=== PATIENT | male | born 1950 | race Caucasian/White ===

== ENCOUNTER 2020-03-17 13:22 | Emergency (ER) | payer MEDICARE, BC ==
[~2020-03-17] VITALS: Ht 182.9 cm; Wt 126.6 kg
[~2020-03-17 13:22] MED LIST: ASPI-12 PO; CELE-193 PO; GABA-338 PO; MULT-1085 PO; OMEG-166 PO; RESV250C2 PO; VITA-1 PO
[2020-03-17] MEDS ORDERED: normal saline 1000ML IV soln IVB ONE (14:05)
[2020-03-17 14:50] LABS: BASOPHILS % (AUTO) 0.5 % (0-1); EOSINOPHILS # (AUTO) 0.2 X10'3 (0-0.9); EOSINOPHILS % (AUTO) 3.3 % (0-6); HEMATOCRIT 43.8 % (42.0-52.0); HEMOGLOBIN 14.8 g/dl (14.0-17.9); LYMPHOCYTES # (AUTO) 1.5 X10'3 (1.1-4.8); LYMPHOCYTES % (AUTO) 23.7 % (21-51); MEAN CORPUSCULAR HEMOGLOBIN 32.9 PG (27.0-31.0); MEAN CORPUSCULAR HGB CONC 33.9 g/dL (33.0-36.5); MEAN CORPUSCULAR VOLUME 97.2 FL (78-98); MEAN PLATELET VOLUME 7.7 FL (7.4-10.4); MONOCYTES # (AUTO) 0.6 X10'3 (0-0.9); MONOCYTES % (AUTO) 10.3 % (2-12); NEUTROPHILS # (AUTO) 3.8 X10'3 (1.8-7.7); NEUTROPHILS % (AUTO) 62.2 % (42-75); PLATELET COUNT 211 X10'3 (140-440); RED BLOOD COUNT 4.51 X10'6 (4.70-6.10); RED CELL DISTRIBUTION WIDTH 13.6 % (11.5-14.5); WHITE BLOOD COUNT 6.2 X10'3 (4.5-11.0)
[2020-03-17 14:59] LABS: ALANINE AMINOTRANSFERASE 36 U/L (12-78); ALBUMIN 3.6 G/DL (3.4-5.0); ALBUMIN/GLOBULIN RATIO 1.1 (1.1-1.5); ALKALINE PHOSPHATASE 66 IU/L (46-116); ANION GAP 9 (8-16); ASPARTATE AMINO TRANSFERASE 27 U/L (10-37); BILIRUBIN,TOTAL 0.8 MG/DL (0.1-1.0); BLOOD UREA NITROGEN 33 MG/DL (7-18); BUN/CREATININE RATIO 20.2 (5.4-32.0); CALCIUM 8.6 MG/DL (8.5-10.1); CHLORIDE 109 MMOL/L (99-107); CREATININE 1.63 MG/DL (0.60-1.10); GLUCOSE 146 MG/DL (70-104); POTASSIUM 4.9 MMOL/L (3.5-5.1); SODIUM 141 MMOL/L (135-145); TOTAL CARBON DIOXIDE 23.3 MMOL/L (24-32); TOTAL PROTEIN 6.9 G/DL (6.4-8.2); eGFR 42 ML/MIN
[2020-03-17 15:51] VITALS: BP 96/52
== END 2020-03-17 15:57 | disposition home or self-care (01) ==
LOC: ER 13:22
DX: H53.8 Other visual disturbances (principal); R42 Dizziness and giddiness; Z95.0 Presence of cardiac pacemaker; Z98.890 Other specified postprocedural states; Z79.82 Long term (current) use of aspirin; Z79.899 Other long term (current) drug therapy
CPT/HCPCS: 36415; 80053; 84484; 85025; 93005; 96360; 99284; J7030

== ENCOUNTER 2020-09-03 13:21 | Emergency (ER) | payer MEDICARE, BC ==
[~2020-09-03] VITALS: Ht 182.9 cm; Wt 127.0 kg
[2020-09-03 13:44] VITALS: BP 101/65
[2020-09-03 14:25] LABS: BASOPHILS % (AUTO) 0.5 % (0-1); EOSINOPHILS # (AUTO) 0.2 X10'3 (0-0.9); EOSINOPHILS % (AUTO) 2.3 % (0-6); HEMATOCRIT 40.1 % (42.0-52.0); HEMOGLOBIN 13.5 g/dl (14.0-17.9); LYMPHOCYTES # (AUTO) 1.4 X10'3 (1.1-4.8); LYMPHOCYTES % (AUTO) 17.5 % (21-51); MEAN CORPUSCULAR HEMOGLOBIN 32.4 PG (27.0-31.0); MEAN CORPUSCULAR HGB CONC 33.6 g/dL (33.0-36.5); MEAN CORPUSCULAR VOLUME 96.6 FL (78-98); MEAN PLATELET VOLUME 7.2 FL (7.4-10.4); MONOCYTES # (AUTO) 0.8 X10'3 (0-0.9); MONOCYTES % (AUTO) 10.5 % (2-12); NEUTROPHILS # (AUTO) 5.4 X10'3 (1.8-7.7); NEUTROPHILS % (AUTO) 69.2 % (42-75); PLATELET COUNT 229 X10'3 (140-440); RED BLOOD COUNT 4.15 X10'6 (4.70-6.10); RED CELL DISTRIBUTION WIDTH 13.8 % (11.5-14.5); WHITE BLOOD COUNT 7.8 X10'3 (4.5-11.0)
[2020-09-03 14:39] LABS: PARTIAL THROMBOPLASTIN TIME 30 SECONDS (22-32)
[2020-09-03 14:44] LABS: ALANINE AMINOTRANSFERASE 28 U/L (12-78); ALBUMIN 3.6 G/DL (3.4-5.0); ALBUMIN/GLOBULIN RATIO 1.1 (1.1-1.5); ALKALINE PHOSPHATASE 73 IU/L (46-116); ANION GAP 9 (8-16); ASPARTATE AMINO TRANSFERASE 22 U/L (10-37); BILIRUBIN,TOTAL 0.8 MG/DL (0.1-1.0); BLOOD UREA NITROGEN 52 MG/DL (7-18); BUN/CREATININE RATIO 30.4 (5.4-32.0); CALCIUM 8.6 MG/DL (8.5-10.1); CHLORIDE 104 MMOL/L (99-107); CREATININE 1.71 MG/DL (0.60-1.10); GLUCOSE 105 MG/DL (70-104); POTASSIUM 5.1 MMOL/L (3.5-5.1); SODIUM 137 MMOL/L (135-145); TOTAL CARBON DIOXIDE 24.4 MMOL/L (24-32); TOTAL PROTEIN 6.9 G/DL (6.4-8.2); eGFR 40 ML/MIN
[2020-09-03] MEDS ORDERED: ONDA4TAB6 PO (17:34)
[2020-09-03] MEDS ORDERED: LIDO28CR2 TOP (17:34)
[2020-09-03] MEDS ORDERED: HYDR-3965 PO (17:34)
[2020-09-03] MEDS ORDERED: ondansetron/PF 4mg/2ml inj IV ONE (17:40)
[2020-09-03] MEDS ORDERED: HYDROcodone/acetaminophen 5mg/325mg tablet PO ONE (17:40)
[2020-09-03] MEDS ORDERED: ondansetron 4mg rapidly disintigrating tab PO ONE (17:45)
== END 2020-09-03 17:52 | disposition home or self-care (01) ==
LOC: ER 13:21
DX: K62.89 Other specified diseases of anus and rectum (principal); K64.4 Residual hemorrhoidal skin tags; Z98.890 Other specified postprocedural states; Z95.0 Presence of cardiac pacemaker; Z79.82 Long term (current) use of aspirin; Z79.899 Other long term (current) drug therapy
CPT/HCPCS: 36415; 80053; 85025; 85610; 85730; 99283

== ENCOUNTER 2020-09-19 08:17 | Emergency (ER) | payer MEDICARE, BC ==
[~2020-09-19] VITALS: Ht 182.9 cm; Wt 126.0 kg
[~2020-09-19 08:17] MED LIST changes: +LIDO28CR2 TOP; +ONDA4TAB6 PO
[2020-09-19 08:33] VITALS: BP 150/78
[2020-09-19] MEDS ORDERED: LIDO28CR2 TOP (11:13)
[2020-09-19] MEDS ORDERED: NITR30OI6 PR (11:16)
[2020-09-19] MEDS ORDERED: HYDR-3965 PO (11:30)
== END 2020-09-19 11:38 | disposition home or self-care (01) ==
LOC: ER 08:17
DX: K60.2 Anal fissure, unspecified (principal); Z98.890 Other specified postprocedural states; Z95.0 Presence of cardiac pacemaker; Z79.82 Long term (current) use of aspirin; Z79.899 Other long term (current) drug therapy
CPT/HCPCS: 99283

== ENCOUNTER 2020-11-05 19:55 | Emergency (ER) | payer MEDICARE, BC ==
[~2020-11-05] VITALS: Ht 182.9 cm; Wt 125.0 kg
[~2020-11-05 19:55] MED LIST changes: +NITR30OI6 PR
--- NOTE | 2020-11-05 21:12 | NUR ---
PACEMKER INTERROGATOR AT BEDSIDE.
[2020-11-05 21:41] LABS: BASOPHILS % (AUTO) 0.6 % (0-1); EOSINOPHILS # (AUTO) 0.2 X10'3 (0-0.9); EOSINOPHILS % (AUTO) 2.4 % (0-6); HEMATOCRIT 41.2 % (42.0-52.0); LYMPHOCYTES # (AUTO) 1.2 X10'3 (1.1-4.8); LYMPHOCYTES % (AUTO) 14.2 % (21-51); MEAN CORPUSCULAR HEMOGLOBIN 32.6 PG (27.0-31.0); MEAN CORPUSCULAR HGB CONC 33.9 g/dL (33.0-36.5); MEAN CORPUSCULAR VOLUME 96.3 FL (78-98); MEAN PLATELET VOLUME 7.2 FL (7.4-10.4); MONOCYTES # (AUTO) 0.7 X10'3 (0-0.9); MONOCYTES % (AUTO) 8.7 % (2-12); NEUTROPHILS # (AUTO) 6.2 X10'3 (1.8-7.7); NEUTROPHILS % (AUTO) 74.1 % (42-75); PLATELET COUNT 244 X10'3 (140-440); RED BLOOD COUNT 4.28 X10'6 (4.70-6.10); RED CELL DISTRIBUTION WIDTH 14.3 % (11.5-14.5); WHITE BLOOD COUNT 8.4 X10'3 (4.5-11.0)
[2020-11-05 21:56] LABS: ALANINE AMINOTRANSFERASE 24 U/L (12-78); ALBUMIN 3.2 G/DL (3.4-5.0); ALBUMIN/GLOBULIN RATIO 0.8 (1.1-1.5); ALKALINE PHOSPHATASE 68 IU/L (46-116); ANION GAP 7 (8-16); ASPARTATE AMINO TRANSFERASE 15 U/L (10-37); BILIRUBIN,TOTAL 0.4 MG/DL (0.1-1.0); BLOOD UREA NITROGEN 30 MG/DL (7-18); BUN/CREATININE RATIO 22.1 (5.4-32.0); CALCIUM 8.6 MG/DL (8.5-10.1); CHLORIDE 110 MMOL/L (99-107); CREATININE 1.36 MG/DL (0.60-1.10); GLUCOSE 126 MG/DL (70-104); POTASSIUM 4.3 MMOL/L (3.5-5.1); SODIUM 144 MMOL/L (135-145); TOTAL CARBON DIOXIDE 26.8 MMOL/L (24-32); eGFR 52 ML/MIN
[2020-11-05 22:04] LABS: MAGNESIUM 2.5 MG/DL (1.5-2.4)
[2020-11-05] MEDS ORDERED: normal saline 1000ML IV soln IVB ONE (22:05)
[2020-11-05] MEDS ORDERED: amiodarone 50MG/ML inj IV ONE (22:25)
[2020-11-05] MEDS ORDERED: AMIO200T61 PO (22:29)
[2020-11-05] MEDS ORDERED: amiodarone 150mg/dext, iso-os 100 ML IV ONE (22:30)
[2020-11-05 23:30] VITALS: BP 102/69
== END 2020-11-05 23:32 | disposition home or self-care (01) ==
LOC: ER 19:56
DX: T82.897A Other specified complication of cardiac prosthetic devices, implants and grafts, initial encounter (principal); E86.0 Dehydration; Z95.0 Presence of cardiac pacemaker; Z98.890 Other specified postprocedural states; Z79.82 Long term (current) use of aspirin; Z79.899 Other long term (current) drug therapy
CPT/HCPCS: 36415; 71045; 80053; 83735; 83880; 84484; 85025; 93005; 96365; 99285; J7030

== ENCOUNTER 2021-02-20 15:15 | Inpatient (IN) | payer MEDICARE, BC ==
[~2021-02-20] VITALS: Ht 365.8 cm; Wt 123.1 kg
[~2021-02-20 15:15] MED LIST changes: +LIDOcaine 2% 10ml vial ONE; +amiodarone 50MG/ML inj IV ONE; +etomidate 2mg/ml inj. ONE
[2021-02-20] MEDS ORDERED: SACU1TAB4 PO (15:29)
[2021-02-20] MEDS ORDERED: CARV6.253 PO (15:29)
[2021-02-20] MEDS ORDERED: APIX5TAB3 PO (15:29)
[2021-02-20] MEDS ORDERED: GABA600T13 PO (15:29)
[2021-02-20] MEDS ORDERED: DAPA10TA PO (15:29)
[2021-02-20] MEDS ORDERED: SOTA80TA73 PO (15:29)
[2021-02-20] MEDS ORDERED: SPIR25TA5 PO (15:29)
[2021-02-20] MEDS ORDERED: MULT-1085 PO (15:37)
[2021-02-20 15:39] LABS: BASOPHILS % (AUTO) 0.6 % (0-1); EOSINOPHILS # (AUTO) 0.2 X10'3 (0-0.9); HEMATOCRIT 47.5 % (42.0-52.0); HEMOGLOBIN 15.9 g/dl (14.0-17.9); LYMPHOCYTES # (AUTO) 1.3 X10'3 (1.1-4.8); MEAN CORPUSCULAR HEMOGLOBIN 32.1 PG (27.0-31.0); MEAN CORPUSCULAR HGB CONC 33.5 g/dL (33.0-36.5); MEAN CORPUSCULAR VOLUME 95.7 FL (78-98); MEAN PLATELET VOLUME 6.9 FL (7.4-10.4); MONOCYTES # (AUTO) 0.6 X10'3 (0-0.9); MONOCYTES % (AUTO) 7.2 % (2-12); NEUTROPHILS # (AUTO) 5.9 X10'3 (1.8-7.7); NEUTROPHILS % (AUTO) 74.2 % (42-75); PLATELET COUNT 220 X10'3 (140-440); RED BLOOD COUNT 4.97 X10'6 (4.70-6.10); WHITE BLOOD COUNT 7.9 X10'3 (4.5-11.0)
[2021-02-20] MEDS ORDERED: etomidate 2mg/ml inj. IV ONE (15:45)
[2021-02-20] MEDS ORDERED: amiodarone 50MG/ML inj IV ONE (15:45)
[2021-02-20] MEDS ORDERED: amiodarone 150mg/dext, iso-os 100 ML IV ONE (15:48)
[2021-02-20] MEDS: amiodarone/D5 360MG/200ML BAG 200 ML IV SCH ×2 (15:48→21:08)
--- NOTE | 2021-02-20 15:48 | NUR ---
1544 ETOMIDATE 10MG GIVEN IV 1544 DEFIBRILLATED X3 SYNCHRONIZED AT 200J FOR ATTEMPTED CARDIOVERSION 1545 AMIO 150MG PUSH GIVEN AND DRIP STARTED 1545 BP 118/99, O2 94% ON 3L AND RT AT BEDSIDE, HR 187 CONTINUED VTACH PERFORMED SYNCRONIZED CARDIOVERSION
[2021-02-20 15:55] LABS: ALANINE AMINOTRANSFERASE 25 U/L (12-78); ALBUMIN 3.6 G/DL (3.4-5.0); ALBUMIN/GLOBULIN RATIO 1.1 (1.1-1.5); ALKALINE PHOSPHATASE 75 IU/L (46-116); ANION GAP 13 (8-16); ASPARTATE AMINO TRANSFERASE 22 U/L (10-37); BILIRUBIN,TOTAL 0.7 MG/DL (0.1-1.0); BLOOD UREA NITROGEN 32 MG/DL (7-18); BUN/CREATININE RATIO 20.8 (5.4-32.0); CALCIUM 9.1 MG/DL (8.5-10.1); CHLORIDE 104 MMOL/L (99-107); CREATININE 1.54 MG/DL (0.60-1.10); GLUCOSE 94 MG/DL (70-104); POTASSIUM 4.8 MMOL/L (3.5-5.1); SODIUM 140 MMOL/L (135-145); TOTAL CARBON DIOXIDE 23.4 MMOL/L (24-32); TOTAL PROTEIN 6.9 G/DL (6.4-8.2); eGFR 45 ML/MIN
[2021-02-20 16:03] LABS: MAGNESIUM 2.3 MG/DL (1.5-2.4)
[2021-02-20] MEDS ORDERED: LIDOcaine 2% (20 mg/ml) 5ml cardiac syringe IV ONE (16:10)
[2021-02-20] MEDS ORDERED: LIDOcaine 2% (20 mg/ml) 5ml cardiac syringe IV PRN (16:10)
--- NOTE | 2021-02-20 16:19 | NUR ---
180MG LIDOCANE PUSHED PER MD ORDER
[2021-02-20] MEDS ORDERED: esmolol/sodium cl bag 250 ML IV SCH (16:20)
[2021-02-20] MEDS ORDERED: esmolol 10mg/ml inj IV PRN (16:20)
[2021-02-20] MEDS ORDERED: PERFLUTREN PROTEIN-A MICROSPHR (Optison) 0.22 MG/ML 3ML VIAL IV ONE (16:25)
[2021-02-20] MEDS ORDERED: acetaminophen 325mg tablet PO PRN ×2 (16:25)
--- NOTE | 2021-02-20 16:25 | NUR ---
PT CONVERTED TO PACED RHYTHM OF 60 BPM AFTER LIDOCAINE REPET EKG DONE
--- NOTE | 2021-02-20 16:32 | NUR ---
PT STATED THAT HE FELT STRANGE AFTER CONVERTING BUT NOW FEELIG BETTER JUST TIRED
[2021-02-20] MEDS: normal saline 1000ml 1,000 ML IV SCH (17:13)
[2021-02-20] MEDS ORDERED: normal saline 1000ml 1,000 ML IV ONE (17:30)
[2021-02-20] MEDS ORDERED: dexmedetomidin/NS 400mcg/100ml 100 ML IV SCH (17:30)
[2021-02-20] MEDS: docusate sod 100mg capsule PO SCH (20:00)
[2021-02-20 21:00] VITALS: BP 101/65
[2021-02-20 22:00] VITALS: BP 96/60
[2021-02-20 23:00] VITALS: BP 91/56
[2021-02-21] VITALS (20 sets, daily range): BP systolic 93–111; BP diastolic 59–76
[2021-02-21] MEDS ORDERED: gabapentin 300mg capsule PO ONE (00:45)
[2021-02-21] MEDS: amiodarone/D5 360MG/200ML BAG 200 ML IV SCH (03:33)
[2021-02-21 06:26] LABS: APTT 29 SECONDS (22-32)
[2021-02-21 06:34] LABS: ALANINE AMINOTRANSFERASE 27 U/L (12-78); ALKALINE PHOSPHATASE 63 IU/L (46-116); ANION GAP 8 (8-16); ASPARTATE AMINO TRANSFERASE 24 U/L (10-37); BILIRUBIN,TOTAL 0.8 MG/DL (0.1-1.0); BLOOD UREA NITROGEN 25 MG/DL (7-18); BUN/CREATININE RATIO 21.2 (5.4-32.0); CALCIUM 8.5 MG/DL (8.5-10.1); CHLORIDE 111 MMOL/L (99-107); CREATININE 1.18 MG/DL (0.60-1.10); GLUCOSE 93 MG/DL (70-104); MAGNESIUM 2.3 MG/DL (1.5-2.4); PHOSPHORUS 3.7 MG/DL (2.3-4.5); POTASSIUM 4.3 MMOL/L (3.5-5.1); SODIUM 143 MMOL/L (135-145); TOTAL CARBON DIOXIDE 24.2 MMOL/L (24-32); TOTAL PROTEIN 5.9 G/DL (6.4-8.2); eGFR 61 ML/MIN
[2021-02-21] MEDS ORDERED: pantoprazole 40MG/NS 100ML BAG 100 ML IV SCH (08:00)
[2021-02-21] MEDS ORDERED: ALPRAZolam 0.5mg tablet PO PRN (08:40)
[2021-02-21] MEDS ORDERED: polyethylene glycol 3350 17gm powd pack PO PRN (11:20)
[2021-02-21] MEDS: gabapentin 300mg capsule PO SCH ×2 (11:59→20:15)
[2021-02-21] MEDS: docusate sod 100mg capsule PO SCH ×2 (12:00→20:15)
--- NOTE | 2021-02-21 13:00 | NUR ---
Voicemail left for Dr Mccarty. Requested clarification on whether or not to restart pt's Eliquis. Informed him of Dr Allen's transfer order.
[2021-02-21] MEDS: amiodarone 200mg tablet PO SCH ×2 (15:06→20:15)
[2021-02-21] MEDS: gabapentin 400mg capsule PO SCH (15:06)
[2021-02-21] MEDS: ALPRAZolam 0.25mg tablet PO PRN (17:44)
--- NOTE | 2021-02-21 17:50 | NUR ---
Report called to JOSE C Sosa on PCU.
--- NOTE | 2021-02-21 18:40 | NUR ---
Problems reprioritized. Patient report given, questions answered & plan of care reviewed with Ni Rn, patient stable at transfer of care.
--- NOTE | 2021-02-21 18:40 | NUR ---
Patient in room PCU 3020. I have received report from Addy WOODALL and had the opportunity to ask questions and assume patient care.
[2021-02-21] MEDS: normal saline 1000ml 1,000 ML IV SCH ×2 (19:05→20:16)
[2021-02-21] MEDS: carvedilol 6.25mg tablet PO SCH (20:14)
[2021-02-21] MEDS: sacubitril/valsartan 49mg-51mg tablet PO SCH (21:53)
[2021-02-22 02:00] VITALS: BP 98/56
[2021-02-22 06:00] VITALS: BP 99/65
--- NOTE | 2021-02-22 06:54 | NUR ---
Patient in room PCU 3020. I have received report from JOSE C RIBERA and had the opportunity to ask questions and assume patient care.
[2021-02-22 07:13] LABS: APTT 26 SECONDS (22-32)
[2021-02-22 07:47] LABS: ALANINE AMINOTRANSFERASE 26 U/L (12-78); ALBUMIN 2.9 G/DL (3.4-5.0); ALBUMIN/GLOBULIN RATIO 0.9 (1.1-1.5); ALKALINE PHOSPHATASE 67 IU/L (46-116); ANION GAP 9 (8-16); ASPARTATE AMINO TRANSFERASE 25 U/L (10-37); BILIRUBIN,TOTAL 1.1 MG/DL (0.1-1.0); BLOOD UREA NITROGEN 21 MG/DL (7-18); BUN/CREATININE RATIO 19.6 (5.4-32.0); CALCIUM 8.7 MG/DL (8.5-10.1); CHLORIDE 111 MMOL/L (99-107); CREATININE 1.07 MG/DL (0.60-1.10); GLUCOSE 95 MG/DL (70-104); PHOSPHORUS 3.4 MG/DL (2.3-4.5); POTASSIUM 4.3 MMOL/L (3.5-5.1); SODIUM 143 MMOL/L (135-145); TOTAL CARBON DIOXIDE 22.8 MMOL/L (24-32); TOTAL PROTEIN 6.1 G/DL (6.4-8.2); eGFR 69 ML/MIN
[2021-02-22] MEDS ORDERED: DAPAGLIFLOZIN 10MG TABLET PO SCH (08:00)
[2021-02-22] MEDS ORDERED: multivitamins, therapeutics tablet PO SCH (08:00)
[2021-02-22] MEDS: gabapentin 300mg capsule PO SCH (08:00)
[2021-02-22] MEDS ORDERED: spironolactone 25 MG tablet PO SCH (08:00)
[2021-02-22 08:48] VITALS: BP 109/78
[2021-02-22] MEDS: gabapentin 400mg capsule PO SCH ×3 (08:54→16:08)
[2021-02-22] MEDS: docusate sod 100mg capsule PO SCH (08:54)
[2021-02-22] MEDS: carvedilol 6.25mg tablet PO SCH (08:55)
[2021-02-22] MEDS: sacubitril/valsartan 49mg-51mg tablet PO SCH (08:55)
[2021-02-22] MEDS: amiodarone 200mg tablet PO SCH ×2 (08:55→12:26)
[2021-02-22] MEDS: normal saline 1000ml 1,000 ML IV SCH (08:56)
[2021-02-22 11:00] VITALS: BP 131/69
[2021-02-22] MEDS: ALPRAZolam 0.25mg tablet PO PRN (12:26)
[2021-02-22] MEDS ORDERED: AMIO200T67 PO (13:44)
[2021-02-22] MEDS ORDERED: ALPR-149 PO (13:44)
[2021-02-22 15:00] VITALS: BP_SYST 104; BP_SYST 105; BP_DIAS 66; BP_DIAS 83
--- NOTE | 2021-02-22 16:41 | NUR ---
PATIENT STABLE AND APPROPRIATE FOR DISCHARGE, TELE REMOVED, IV TAKEN OUT, NEW MEDS E-SCRIPTED TO PREFERRED PHARMACY, EDUCATION GIVEN, ALL BELONGINGS SENT WITH PATIENT, PATIENT TAKEN TO LOBBY BY WHEELCHAIR TO AN AWAITING CAR WHERE FAMILY WILL TAKE PATIENT TO [facility] FOR FURTHER CARE
== END 2021-02-22 06:30 | disposition home or self-care (01) | DRG 315 ==
LOC: ER 15:15 → ED HOLD 16:45 → ICU 2S 20:57 → PCU 3S 02-21 17:55
PROVIDERS: ADMIT Surgery; ATTEND Surgery
PROC: 5A2204Z Restoration of Cardiac Rhythm, Single (ICD-10-PCS; principal; 2021-02-20)
PROC: 4B02XSZ Measurement of Cardiac Pacemaker, External Approach (ICD-10-PCS; 2021-02-20)
PROC: 5A09357 Assistance with Respiratory Ventilation, Less than 24 Consecutive Hours, Continuous Positive Airway Pressure (ICD-10-PCS; 2021-02-21)
DX: T82.119A Breakdown (mechanical) of unspecified cardiac electronic device, initial encounter (principal); I47.2 Ventricular tachycardia; N17.9 Acute kidney failure, unspecified; I42.8 Other cardiomyopathies; G47.33 Obstructive sleep apnea (adult) (pediatric); E86.1 Hypovolemia; E86.0 Dehydration; F43.10 Post-traumatic stress disorder, unspecified; F41.9 Anxiety disorder, unspecified; Y83.8 Other surgical procedures as the cause of abnormal reaction of the patient, or of later complication, without mention of misadventure at the time of the procedure; G62.9 Polyneuropathy, unspecified; I95.9 Hypotension, unspecified; Z79.01 Long term (current) use of anticoagulants; Z95.810 Presence of automatic (implantable) cardiac defibrillator; Z79.899 Other long term (current) drug therapy; Y92.89 Other specified places as the place of occurrence of the external cause
CPT/HCPCS: 36415; 71045; 80053; 83735; 83880; 84100; 84443; 84484; 85025; 85610; 85730; 93005; 93306; 94760; 94799; 96374; 96375; 99285; G0378; J0282; J3490; J7030